=== PATIENT | female | born 1965 | race Caucasian/White ===

== ENCOUNTER → 2017-04-19 | Outpatient (CLI) | payer OTHER ==
--- NOTE | 2017-04-19 17:08 | RADIOLOGY REPORT (SQ) ---
EXAM DESCRIPTION: PARANASAL SINUSES COMPLETED DATE/TIME: 04/19/2017 4:41 pm REASON FOR STUDY: CHRONIC SINUSITIS, UNSPECIFIED J32.9 CHRONIC SINUSITIS, UNSPECIFIED COMPARISON: MRI brain 05/26/2011 CT facial bones 05/24/2011 NUMBER OF VIEWS: AP, Peoples, lateral view Three views total TECHNIQUE: Images of the paranasal sinuses acquired. LIMITATIONS: None. FINDINGS: ORBITS: No fracture. No foreign body. SINUSES: No mucosal thickening. No air fluid levels. FACIAL BONES: No fracture. OTHER: No other significant finding. IMPRESSION: NO FOREIGN BODY OR FRACTURE. NO PLAIN RADIOGRAPHIC EVIDENCE FOR SINUS DISEASE. TECHNICAL DOCUMENTATION: JOB ID: [id number] [employer]- All Rights Reserved
== END ==
LOC: OD 16:19
PROVIDERS: ATTEND Allergy & Immunology
DX: J32.9 Chronic sinusitis, unspecified (principal)
CPT/HCPCS: 70220